=== PATIENT | male | born 1975 | race Hispanic/Latino ===

== ENCOUNTER 2017-10-18 05:50 | Emergency (ER) | payer OTHER ==
[2017-10-18] MEDS ORDERED: TETRACAINE HCL 0.5% 4 ML OPHTH SOLN ONE (06:01)
[2017-10-18] MEDS ORDERED: FLUORESCEIN SODIUM 0.6 MG STRIP ONE (06:02)
[2017-10-18] MEDS ORDERED: ERYTHROMYCIN BASE 0.5% OPHTH OINT 1 GM TUBE ONE (07:08)
[2017-10-18] MEDS ORDERED: HYDROCODONE/ACETAMINOPHEN 10/325 MG TAB ONE (07:09)
== END 2017-10-18 07:51 | disposition home or self-care (01) ==
LOC: EDH 05:50
DX: S05.01XA Injury of conjunctiva and corneal abrasion without foreign body, right eye, initial encounter (principal); X58.XXXA Exposure to other specified factors, initial encounter; Y93.89 Activity, other specified; Y92.89 Other specified places as the place of occurrence of the external cause; Y99.8 Other external cause status